=== PATIENT | male | born 1970 | race Caucasian/White ===

== ENCOUNTER 2017-05-23 01:40 | Observation (INO) ==
[2017-05-23] MEDS ORDERED: Naloxone 0.4 MG/ML INJ IVP PRN (03:55)
[2017-05-23] MEDS ORDERED: Nitroglycerin 0.4 MG TAB.SUBL SL PRN (03:57)
[2017-05-23] MEDS ORDERED: *HR* LORazepam 2 MG/ML VIAL IVP PRN ×2 (04:24)
[2017-05-23] MEDS: *HR* Heparin 5,000 UNIT/ML VIAL SQ SCH ×2 (04:24→20:38)
--- NOTE | 2017-05-23 04:27 | Internal Med History&Physical ---
Date of Encounter: 05/23/17 Time of Encounter: 04:15 Assessment and Plan (1) Chest pain Current visit: Yes Status: Acute Acute left-sided chest pain relieved with nitroglycerin. Patient does have risk factors for coronary artery disease including hypertension. We will trend troponins. If troponins are negative, plan for cardiac stress test in the morning. Keep nothing by mouth for now. Check lipid profile and A1c. We will monitor with telemetry. Start aspirin, statin Qualifiers: Chest pain type: precordial pain Qualified Code(s): R07.2 - Precordial pain (2) Essential hypertension Current visit: Yes Status: Chronic Monitor blood pressure. Currently not on any medications. (3) Alcohol withdrawal Current visit: Yes Status: Acute Recent with symptoms of alcohol withdrawal including tremors. No signs of delirium tremens at this time. We will monitor with CIWA protocol and use IV Ativan for symptom relief. High risk for complications due to use of intravenous benzodiazepines. We will also provide supportive care with thiamine , folic acid and IV fluids. Social work consult for alcohol abuse. Qualifiers: Complication of substance-induced condition: uncomplicated Qualified Code(s ): F10.230 - Alcohol dependence with withdrawal, uncomplicated Internal Medicine - H&P: HPI Chief complaint: Chest pain Admitted From: Emergency Dept Plans for Post Hospital Care: Home History of present illness: Mr. Nichols is a 47 year old male patient with a history of essential hypertension, alcohol abuse presented to the ER with complaints of chest pain. He states that the chest pain has been going on intermittently for about one month now. Pain is located on the left side of the chest and radiates down his left arms occasionally. He does have intermittent chest pain on the right side of his chest also. Pain was relieved with nitroglycerin that he received in the ER. No relation to activity. Does not get worse with deep inspiration. Patient also reports that he has been trying to detox himself from alcohol and has been trying to drink alcohol every other day only. He complains of tremors and symptoms of alcohol withdrawal. He reports that he has had history of seizures from alcohol withdrawal. Denies any hallucinations at this time. Patient also complains of cough with production of whitish sputum. He is a chronic smoker. He has not had any prior cardiac workup or stress test. Past Med Surg Social Fam HX - Past Medical History Attestation: Yes The following information was validated with the patient. Source: patient Medical history: hypertension Psychiatric history: no psych history - Social History Smoking Status: Current every day smoker Packs per day: 2 Smokeless Tobacco Status: No Alcohol use: heavy Drug use: none - Family History Mother Living Status: Hx Family Cancer: Yes (Pancreatic) Father Living Status: Hx Family Respiratory Disorders: Yes (COPD) Internal Medicine - H&P: Meds No Known Home Drugs 05/22/17 [History] Allergies No Known Allergies Allergy (Verified 05/22/17 23:10) All Systems PM: A 10-system review of systems was performed and is negative for pertinent findings except as documented above in the HPI. - Constitutional Constitutional: no chills, no fever(s), no night sweats - EENT Eyes: no change in vision, no discharge, no pain, no photophobia Ears: no ear discharge, no ear pain, no tinnitus Nose, mouth and throat: no dysphagia, no nasal discharge, no neck pain, no sore throat - Cardiovascular Cardiovascular ROS IM: chest pain, no diaphoresis, no dyspnea, no lightheadedness, no palpitations, no syncope - Respiratory Respiratory: cough, no dyspnea, no wheezing, no excessive phlegm production - Gastrointestinal Gastrointestinal: no abdominal pain, no diarrhea, no hematemesis, no hematochezia, no melena, no nausea, no vomiting - Musculoskeletal Musculoskeletal ROS IM: no numbness, no tingling - Integumentary Integumentary IM: no rash, no unusual bruising - Neurological Neurological ROS: no confusion, no convulsions, no focal weakness, no numbness, no tingling, no tremor(s) - Hematologic/Lymphatic Hematologic/Lymphatic: no easy bruising - Constitutional Vitals: Temp Pulse Resp BP Pulse Ox 98.4 F 88 16 132/98 97 05/23/17 03:58 05/23/17 03:58 05/23/17 03:58 05/23/17 03:58 05/23/17 03:58 General appearance: Present: cooperative, mild distress, A&O X 3, answers questions appropriately - Eye Eye exam: Present: EOMI, PERRL, conjuntiva pink, sclera anicteric - Neck Neck exam general surgery: Present: supple, trachea midline. Absent: lymphadenopathy - Respiratory Respiratory exam: Present: CTAB. Absent: accessory muscle use, rales, rhonchi, wheezes - Cardiovascular Cardiovascular exam: Present: RRR, +S1, +S2. Absent: diastolic murmur, gallop, rubs, systolic murmur - GI/Abdominal GI/Abdominal exam: Present: normal bowel sounds, soft, no peritoneal signs. Absent: distended, tenderness - Extremities Exam Extremities exam: Present: warm, radial pulses palpable and symetrical. Absent : calf tenderness, cyanotic, pedal edema - Neurological Exam Neurological exam: Present: alert, CN II-XII intact, oriented X3, no focal deficits, strengths equal and symetr throughout. Absent: facial droop, speech deficit Additional comments: Bilateral tremors - Skin Skin exam: Present: dry, intact Internal Med - H&P Results - Labs Labs: Troponin 0.00. AST 81, AST 93, alkaline phosphatase 128. Total bilirubin 0.7 - EKG Data -: EKG Interpreted by Myself EKG shows normal: sinus rhythm - EKG Data Interpretation IM: normal EKG - Impressions Chest x-ray shows no acute infiltrate
[2017-05-23] MEDS: *HR* Morphine 2 MG/ML SYRINGE IVP PRN ×2 (04:34→08:55)
[2017-05-23 05:22] LABS: Hemoglobin A1C 5.1 %
[2017-05-23 05:35] LABS: Chol/HDL Ratio 1.9 (0-4.9)
[2017-05-23] MEDS: Folic Acid 1 MG TABLET PO SCH (08:55)
[2017-05-23] MEDS: Vitamin B Complex/Vit C/Vit E 1 EACH TABLET PO SCH (08:55)
[2017-05-23] MEDS: Aspirin Enteric Coated 81 MG Tablet PO SCH (08:55)
[2017-05-23] MEDS: Thiamine (B-1) 100 MG TABLET PO SCH (08:55)
[2017-05-23] MEDS: *HR* LORazepam 2 MG/ML VIAL IVP PRN ×3 (09:05→20:41)
[2017-05-23 09:18] LABS: Basophils # 0.1 K/mcL (0.0-0.2); Basophils % 0.9 %; Eosinophils # 0.1 K/mcL (0.0-0.6); Eosinophils % 1.1 %; Hematocrit 41.5 % (37.5-50.1); Hemoglobin 13.8 g/dL (12.9-16.9); Immature Granulocytes % 0.4 % (0-4); Lymphocytes # 1.3 K/mcL (0.6-4.6); Lymphocytes % 22.3 %; Mean Corpuscular HGB Conc 33.3 g/dL (31.6-35.5); Mean Corpuscular Hemoglobin 28.6 pg (28.0-33.3); Mean Corpuscular Volume 86.1 fL (83.0-100.0); Mean Platelet Volume 9.2 fL (9.4-12.4); Monocytes # 0.7 K/mcL (0.0-1.3); Monocytes % 12.4 %; Neutrophils # 3.6 K/mcL (1.6-8.9); Platelet Count 211 K/mcL (140-400); Red Blood Count 4.82 M/mcL (4.19-5.50); Red Cell Distribution Width 16.7 % (11.5-14.5); Segmented Neutrophils % 62.9 %
[2017-05-23 09:30] LABS: BUN/Creatinine Ratio 10 (6-26); Blood Urea Nitrogen 7 mg/dL (8-26); Calcium 9.3 mg/dL (8.6-10.8); Carbon Dioxide 30 mEq/L (19-29); Chloride 100 mEq/L (98-109); Glucose 83 mg/dL (70-99); Magnesium 1.9 mg/dL (1.6-2.6); Osmolality,Calculated 279 (280-300); Phosphorous 4.1 mg/dL (2.3-4.7); Potassium 4.3 mEq/L (3.5-4.5); Sodium 136 mEq/L (136-145); eGFR For African Americans > 60 (> 60); eGFR For Non-African Americans > 60 (> 60)
[2017-05-23] MEDS ORDERED: Regadenoson 0.4 MG/5 ML SYRINGE IVP ONE (11:11)
--- NOTE | 2017-05-23 13:30 | Nuclear Medicine Stress Report ---
Regadenoson Nuclear Stress Name: Ho Nichols Date of Study: 05/23/2017 Date: 1970 Ht: 73.0 in Medical Record#: [id number] Age: 47 Wt: 139.0 lb Gender: Male Order #: [id number] Location: [facility] Room: [facility] Supervising Provider: Pamela Cortes CNP Reading Physician: Edilson Acosta MD, [facility] Ordering Physician: Shira Floyd MD Primary Care Physician: None Stress Technologist: Bita Lomeli, [employer]CH[employer]IC, CCT, CPFT Air Support Control Officer: Prem Pereira Indications: Chest Pain Impression: Gated LVEF = 67%. Perfusion imaging was negative for ischemia or infarct. History: Hypertension History of Smoking Stress Test Summary: Stress Test Type: Pharmacologic Regadenoson 0.4mg/5ml given IV Baseline Information: Initial Heart Rate: 75 Blood Pressure: 124/92 Stress Information: Test Terminated Due to (primary): As per protocol Maximum Blood Pressure: 124/90 Maximum Heart Rate: 132 Percent Maximum Heart Rate Achieved: 75 Double Product: [id number] Symptoms: Shortness of breath Nuclear Summary: SPECT myocardial perfusion imaging using Tc99m Sestamibi given intravenously was performed at rest and following cardiac stress testing. The resting images were obtained following initial dose of 10.4 mCi. Following stress an additional dose of 33.2 mCi was given at peak exercise or 30 seconds post regadenoson infusion. Findings: Stress Note * Resting ECG demonstrated normal sinus rhythm. * No baseline arrhythmias were noted. * Patient had no chest pain during stress. * No arrhythmias were noted during stress. * No significant ECG changes with regadenoson. Hemodynamic responses * Normal hemodynamic responses to pharmacologic stress. Study Quality * Study quality is average. Gated EF % * Gated LVEF = 67%. Left Ventricle * The left ventricle is not dilated. * Normal Segmental Perfusion in rest. * Normal segmental perfusion in stress. TID * No evidence of transient ischemic dilatation. Updated by Edilson Acosta MD, [facility] on 05/23/2017 1:26:03 PM electronically signed on 05/23/2017 1:26:23 PM with status of Final
--- NOTE | 2017-05-23 14:15 | Event Note ---
Date of Encounter: 05/23/17 Time of Encounter: 14:12 Patient is a 47y/o male with history of hypertension, alcohol abuse and tobacco abuse presents to the hospital for evaluation of chest pain. Patient has history of significant alcohol abuse, drinking 24 24oz of beer daily x 30 years. He also reports of smoking 2packs of cigarettes daily. Currently he is oriented x 3 however reports of being significantly fatigued. Reports of resolution of chest pain. S/p nuclear stress test which is negative for ischemic perfusion defect. Patient was seen and examined at bedside. Will closely monitor for alcohol withdrawals. CIWA q2h ativan prn Metoprolol 12.5mg PO BID for BP control Hydralazine 10mg IV q6h prn SBP>150 or DBP>100 tele monitoring smoking cessation counseling provided. Nicotine supplementation provided social media specialist evaluation requested
[2017-05-23] MEDS: Nicotine 21 MG PATCH.TD24 TD SCH (19:41)
[2017-05-24] MEDS: *HR* LORazepam 2 MG/ML VIAL IVP PRN ×2 (00:44→09:05)
[2017-05-24 04:00] LABS: Basophils # 0.1 K/mcL (0.0-0.2); Basophils % 1.9 %; Eosinophils # 0.2 K/mcL (0.0-0.6); Eosinophils % 3.4 %; Hematocrit 43.6 % (37.5-50.1); Hemoglobin 14.6 g/dL (12.9-16.9); Immature Granulocytes % 0.4 % (0-4); Lymphocytes # 1.4 K/mcL (0.6-4.6); Lymphocytes % 29.1 %; Mean Corpuscular HGB Conc 33.5 g/dL (31.6-35.5); Mean Corpuscular Hemoglobin 29.3 pg (28.0-33.3); Mean Corpuscular Volume 87.6 fL (83.0-100.0); Mean Platelet Volume 9.9 fL (9.4-12.4); Monocytes # 0.8 K/mcL (0.0-1.3); Monocytes % 16.2 %; Neutrophils # 2.3 K/mcL (1.6-8.9); Platelet Count 207 K/mcL (140-400); Red Blood Count 4.98 M/mcL (4.19-5.50); Red Cell Distribution Width 16.7 % (11.5-14.5)
[2017-05-24] MEDS ORDERED: *HR* LORazepam 2 MG/ML VIAL IVP ONE (04:04)
[2017-05-24 04:21] LABS: BUN/Creatinine Ratio 11 (6-26); Blood Urea Nitrogen 8 mg/dL (8-26); Calcium 9.6 mg/dL (8.6-10.8); Carbon Dioxide 20 mEq/L (19-29); Chloride 101 mEq/L (98-109); Glucose 94 mg/dL (70-99); Magnesium 1.9 mg/dL (1.6-2.6); Osmolality,Calculated 274 (280-300); Phosphorous 3.6 mg/dL (2.3-4.7); Sodium 133 mEq/L (136-145); eGFR For African Americans > 60 (> 60); eGFR For Non-African Americans > 60 (> 60)
[2017-05-24] MEDS: *HR* Heparin 5,000 UNIT/ML VIAL SQ SCH (04:58)
[2017-05-24] MEDS ORDERED: amLODIPine 5 MG TABLET PO SCH (09:00)
[2017-05-24] MEDS: Vitamin B Complex/Vit C/Vit E 1 EACH TABLET PO SCH (09:06)
[2017-05-24] MEDS: Folic Acid 1 MG TABLET PO SCH (09:06)
[2017-05-24] MEDS: Aspirin Enteric Coated 81 MG Tablet PO SCH (09:06)
[2017-05-24] MEDS: Thiamine (B-1) 100 MG TABLET PO SCH (09:06)
[2017-05-24] MEDS: Nicotine 21 MG PATCH.TD24 TD SCH (09:09)
[2017-05-24 11:34] VITALS: BP 146/92
--- NOTE | 2017-05-24 12:15 | Internal Med Progress Note ---
Date of Encounter: 05/24/17 Time of Encounter: 12:13 - Assessment and plan (1) Alcohol withdrawal Current Visit: Yes Status: Acute Qualifiers: Complication of substance-induced condition: with unspecified complication Qualified Code(s): F10.239 - Alcohol dependence with withdrawal, unspecified (2) Alcohol abuse Current Visit: Yes Status: Chronic (3) Tobacco abuse Current Visit: Yes Status: Chronic (4) DVT prophylaxis Current Visit: Yes Status: Acute (5) Chest pain Current Visit: Yes Status: Resolved Qualifiers: Chest pain type: unspecified Qualified Code(s): R07.9 - Chest pain, unspecified (6) Essential hypertension Current Visit: Yes Status: Chronic - Subjective Interval history: Patient was seen and examined during PCR rounds and was resting in bed noted to have diffuse tremors. Pt has been requiring constant dose of ativan and is actively withdrawing. Pt is able to conversate but extremely anxious. He is responding appropriately to ativan. he was in agreement from abstaining from alcohol after discharge. I was informed at this time that patient is missing from the room shortly after his came to visit. Both the patient and are no where to be found. Security has been informed. Pt is reported to have eloped with his IV access. Unable to contact the patient at this time. If the patient returns to the hospital, will continue to treat for alcohol withdrawal and hypertension. - Constitutional Vitals: Temp Pulse Resp BP Pulse Ox 97.7 F 70 18 146/92 98 05/24/17 11:26 05/24/17 11:26 05/24/17 11:26 05/24/17 11:26 05/24/17 11:26 General appearance: Present: cooperative, A&O X 3 (diffuse tremors ), answers questions appropriately - Head Head exam: Present: atraumatic, normocephalic - Eye Eye exam: Present: conjuntiva pink, sclera anicteric - Respiratory Respiratory exam: Present: CTAB. Absent: respiratory distress, wheezes - Cardiovascular Cardiovascular exam: Present: RRR, +S1, +S2 - GI/Abdominal GI/Abdominal exam: Present: normal bowel sounds, soft, no peritoneal signs. Absent: distended, tenderness - Extremities Exam Extremities exam: Present: warm, radial pulses palpable and symetrical. Absent : calf tenderness, cyanotic, pedal edema - Neurological Exam Neurological exam: Present: alert, oriented X3 - Psychiatric Psychiatric exam: Present: anxious Internal Medicine: Result - Labs CBC & Chem 7: 05/24/17 03:36 05/24/17 03:36 Labs: Short CBC 05/24/17 Range/Units 03:36 WBC 4.7 (4.3-11.1) K/mcL Hgb 14.6 (12.9-16.9) g/dL Hct 43.6 (37.5-50.1) % Plt Count 207 (140-400) K/mcL Neutrophils # 2.3 (1.6-8.9) K/mcL BMP 05/24/17 03:36 Sodium 133 L Potassium 4.0 Chloride 101 Carbon Dioxide 20 BUN 8 Creatinine 0.71 L Glucose 94 Calcium 9.6 Consult Discharge Plan - Plan Referrals: NO,PCP [Primary Care Provider] -
[2017-05-24] MEDS ORDERED: Thiamine (B-1) 100 MG, Folic Acid 1 MG, MVI, adult with vitamin K 10 ML in 0.9 % Sodi... IVPB SCH (18:00)
== END 2017-05-24 14:00 | disposition left against medical advice (07) ==
LOC: 2NENU
PROVIDERS: ADMIT Internal Medicine; ATTEND Internal Medicine

== ENCOUNTER 2017-08-10 13:47 | Observation (INO) ==
[2017-08-10 14:15] LABS: Bilirubin,Urine Negative (Negative); Blood,Urine Negative (Negative); Clarity,Urine Clear (Clear); Color,Urine Yellow (Yellow); Glucose,Urine (UA) Normal (Normal); Ketones,Urine Negative (Negative); Leukocyte Esterase,Urine Negative (Negative); Nitrite,Urine Negative (Negative); Protein,Urine Negative (Neg-Trace); Specific Gravity,Urine 1.011 (1.010-1.025); Urobilinogen,Urine Normal (Normal)
[2017-08-10 14:20] LABS: Amphetamine Screen,Urine Negative ng/mL (Cutoff=1000); Barbiturate Screen,Urine Negative ng/mL (Cutoff=200); Benzodiazepines Screen,Urine Negative ng/mL (Cutoff=200); Cannabinoid Screen,Urine Negative ng/mL (Cutoff = 50); Cocaine Screen,Urine Negative ng/mL (Cutoff= 300); Opiate Screen,Urine Negative ng/mL (Cutoff=300); Phencyclidine Screen,Urine Negative ng/mL (Cutoff=25)
--- NOTE | 2017-08-10 14:22 | Emergency Department Note ---
Disposition Clinical Impression: Suicidal ideation, Alcohol abuse, Alcoholism Disposition: Admitted As Inpatient Condition: Fair Referrals: NONE,PCP [Primary Care Provider] - Forms: ED Satisfaction Letter Time of Disposition: 14:33 Psych HPI - General Chief Complaint: ED Psychiatric Symptoms Stated Complaint: rAetha VALLE Time Seen by Provider: 08/10/17 14:19 Source: patient Mode of arrival: ambulatory Limitations: no limitations Nursing Notes Reviewed: Yes Vital Signs Reviewed: Yes - History of Present Illness HPI Narrative: Nontoxic-appearing 47-year-old male presents for evaluation of suicidal ideations. He states that these ideations began yesterday gradually gotten worse. He admits to a history of heavy alcohol abuse. He states that he drinks "a 30 pack a day". His last drink was approximately one hour ago. He states "I feel like him to go into withdrawal". He states that he has "no reason to live anymore, other than the alcohol". When asked if he has a current plan regarding how he would inflicts self-harm, the patient points his finger to his jehovah's witness like he is shooting a pistol. He denies any homicidal ideations. He does complain of visual hallucinations that started today. He states "I am just seeing evil stuff". He denies any auditory hallucinations. He denies any other medical complaints at this time. Pt complaint: suicidal ideation, feels depressed, other Onset (ago): day(s) (Yesterday) Duration: getting worse Improves with: none Worsens with: none Context: recent alcohol abuse Associated Psychiatric Symptoms: depression, suicidal ideation, visual hallucinations Associated symptoms: Reports: denies other symptoms Traumatic symptoms: denies traumatic injury Treatments prior to arrival: none Self harm or harm to others: admits thoughts of self harm, has plan - Related Data Home Medications Medication Instructions Recorded Confirmed Unable To Obtain [Unable to Obtain] 05/25/17 05/25/17 Allergies Allergy/AdvReac Type Severity Reaction Status Date / Time No Known Allergies Allergy Verified 08/10/17 13:52 All systems ED: reviewed and negative except as stated. Constitutional: Denies: fever, chills, weakness, weight change Eyes: Denies: eye pain, eye discharge, vision change ENT ED: Denies: ear pain, throat pain, dental pain, hearing loss, epistaxis, congestion, dysphagia Cardiovascular: Denies: chest pain, palpitations, dyspnea on exertion, edema, syncope Respiratory: Denies: cough, dyspnea, wheezes, hemoptysis, stridor Gastrointestinal: Denies: abdominal pain, nausea, vomiting, diarrhea, constipation, hematemesis, melena, hematochezia Genitourinary: Denies: urgency, dysuria, frequency, hematuria Musculoskeletal: Denies: back pain, neck pain, arthralgia, myalgia Integumentary: Denies: rash, abrasion, lesions Neurological: Denies: headache, weakness, numbness, paresthesias, confusion, abnormal gait, vertigo Psychiatric: Reports: as per HPI, depression, suicidal thoughts. Denies: anxiety, homicidal thoughts, auditory hallucinations, visual hallucinations Endocrine: Denies: fatigue Hematological/Lymphatic: Denies: easy bleeding, easy bruising Allergic/Immunologic: Denies: facial swelling, urticaria Past Medical History - Past Medical History Attestation: Yes The following information was validated with the patient. Source: patient, nursing notes reviewed Medical history: Reports: hypertension Psychiatric history: Reports: no psych history - Social History Smoking Status: Current every day smoker Smokeless Tobacco Status: No Alcohol use: Reports: heavy, recent Drug use: Reports: none Physical Exam - General General appearance: alert, in no apparent distress - Head Head exam: atraumatic, normocephalic, normal inspection - Eye Eye exam: Present: normal appearance, PERRL, EOMI. Absent: nystagmus - ENT ENT exam: mucous membranes moist - Neck Neck exam: Present: normal inspection, full ROM, trachea midline - Chest Chest inspection: Present: normal inspection, symmetric chest wall rise - Respiratory Respiratory exam: Present: wheezes (Faint expiratory wheezes bilaterally). Absent: respiratory distress, stridor, accessory muscle use, prolonged expiratory phase - Cardiovascular Cardiovascular exam: Present: regular rate, normal rhythm, normal heart sounds - Abdominal Exam Abdominal exam: Present: soft, Non-Tender, normal bowel sounds - Extremities Exam Extremities exam: Present: normal inspection, full ROM. Absent: tenderness, pedal edema - Back Exam Back exam: Present: normal inspection, full ROM. Absent: tenderness - Neurological Exam Neurological exam: Present: alert, oriented X3 - Psychiatric Psychiatric exam: Present: depressed, suicidal ideation - Skin Skin exam: Present: warm, dry, intact, normal color Course Vital Signs Temperature 98.0 F 08/10/17 13:49 Pulse Rate 115 08/10/17 13:49 Respiratory Rate 16 08/10/17 13:49 Blood Pressure 149/88 08/10/17 13:49 O2 Sat by Pulse Oximetry 95 08/10/17 13:49 Temperature 98.0 F 08/10/17 13:49 Pulse Rate 115 08/10/17 13:49 Respiratory Rate 16 08/10/17 13:49 Blood Pressure 149/88 08/10/17 13:49 O2 Sat by Pulse Oximetry 95 08/10/17 13:49 Oxygen Delivery Oxygen Delivery Room Air Psych - Lab Data Result diagrams: 08/10/17 14:45 08/10/17 14:45 Lab Results 08/10/17 08/10/17 08/10/17 Range/Units 14:03 14:03 14:45 WBC 5.8 (4.3-11.1) K/mcL RBC 5.20 (4.19-5.50) M/mcL Hgb 13.8 (12.9-16.9) g/dL Hct 40.8 (37.5-50.1) % MCV 78.5 L (83.0-100.0) fL MCH 26.5 L (28.0-33.3) pg MCHC 33.8 (31.6-35.5) g/dL RDW 17.7 H (11.5-14.5) % Plt Count 171 (140-400) K/mcL MPV 9.7 (9.4-12.4) fL Immature Gran % 0.2 (0-4) % Seg Neutrophils % 60.4 % Lymphocytes % 29.4 % Monocytes % 8.1 % Eosinophils % 0.5 % Basophils % 1.4 % Neutrophils # 3.5 (1.6-8.9) K/mcL Lymphocytes # 1.7 (0.6-4.6) K/mcL Monocytes # 0.5 (0.0-1.3) K/mcL Eosinophils # 0.0 (0.0-0.6) K/mcL Basophils # 0.1 (0.0-0.2) K/mcL Sodium (136-145) mEq/L Potassium (3.5-4.5) mEq/L Chloride (98-109) mEq/L Carbon Dioxide (19-29) mEq/L BUN (8-26) mg/dL Creatinine (0.72-1.25) mg/dL Est GFR ( Amer) (> 60) Est GFR (Non-Af Amer) (> 60) BUN/Creatinine Ratio (6-26) Glucose (70-99) mg/dL Calculated Osmolality (280-300) Calcium (8.6-10.8) mg/dL Phosphorus (2.3-4.7) mg/dL Magnesium (1.6-2.6) mg/dL Urine Color Yellow (Yellow) Urine Clarity Clear (Clear) Urine pH 6.0 (5.0-8.0) pH Units Ur Specific [place] 1.011 (1.010-1.025) Urine Protein Negative (Neg-Trace) mg/dL Urine Glucose (UA) Normal (Normal) mg/dL Urine Ketones Negative (Negative) mg/dL Urine Blood Negative (Negative) Urine Nitrite Negative (Negative) Urine Bilirubin Negative (Negative) Urine Urobilinogen Normal (Normal) mg/dL Ur Leukocyte Esterase Negative (Negative) Ur Culture Indicated? NO (NO) Salicylates (15-30) mg/dL Urine Opiates Screen Negative (Yywkdr=961) ng/mL Acetaminophen (10-30) mcg/mL Ur Barbiturates Screen Negative (Lysttz=685) ng/mL Ur Phencyclidine Scrn Negative (Cutoff=25) ng/mL Ur Amphetamines Screen Negative (Dlawui=4376) ng/mL U Benzodiazepines Scrn Negative (Cythvm=861) ng/mL Urine Cocaine Screen Negative (Cutoff= 300) ng/mL U Marijuana (THC) Screen Negative (Cutoff = 50) ng/mL Ethyl Alcohol (0-10) mg/dL 08/10/17 08/10/17 Range/Units 14:45 14:45 WBC (4.3-11.1) K/mcL RBC (4.19-5.50) M/mcL Hgb (12.9-16.9) g/dL Hct (37.5-50.1) % MCV (83.0-100.0) fL MCH (28.0-33.3) pg MCHC (31.6-35.5) g/dL RDW (11.5-14.5) % Plt Count (140-400) K/mcL MPV (9.4-12.4) fL Immature Gran % (0-4) % Seg Neutrophils % % Lymphocytes % % Monocytes % % Eosinophils % % Basophils % % Neutrophils # (1.6-8.9) K/mcL Lymphocytes # (0.6-4.6) K/mcL Monocytes # (0.0-1.3) K/mcL Eosinophils # (0.0-0.6) K/mcL Basophils # (0.0-0.2) K/mcL Sodium 137 (136-145) mEq/L Potassium 4.0 (3.5-4.5) mEq/L Chloride 99 (98-109) mEq/L Carbon Dioxide 28 (19-29) mEq/L BUN 6 L (8-26) mg/dL Creatinine 0.78 (0.72-1.25) mg/dL Est GFR ( Amer) > 60 (> 60) Est GFR (Non-Af Amer) > 60 (> 60) BUN/Creatinine Ratio 8 (6-26) Glucose 92 (70-99) mg/dL Calculated Osmolality 281 (280-300) Calcium 9.3 (8.6-10.8) mg/dL Phosphorus 3.6 (2.3-4.7) mg/dL Magnesium 2.1 (1.6-2.6) mg/dL Urine Color (Yellow) Urine Clarity (Clear) Urine pH (5.0-8.0) pH Units Ur Specific [place] (1.010-1.025) Urine Protein (Neg-Trace) mg/dL Urine Glucose (UA) (Normal) mg/dL Urine Ketones (Negative) mg/dL Urine Blood (Negative) Urine Nitrite (Negative) Urine Bilirubin (Negative) Urine Urobilinogen (Normal) mg/dL Ur Leukocyte Esterase (Negative) Ur Culture Indicated? (NO) Salicylates < 5.0 L (15-30) mg/dL Urine Opiates Screen (Aowsqk=961) ng/mL Acetaminophen < 1.0 L (10-30) mcg/mL Ur Barbiturates Screen ([place]=820) ng/mL Ur Phencyclidine Scrn (Cutoff=25) ng/mL Ur Amphetamines Screen (Cfzmiu=3523) ng/mL U Benzodiazepines Scrn (Glolhj=533) ng/mL Urine Cocaine Screen (Cutoff= 300) ng/mL U Marijuana (THC) Screen (Cutoff = 50) ng/mL Ethyl Alcohol 386 H (0-10) mg/dL Psychiatric Medical Clearance - Medical Clearance Checklist Medical History: Essential hypertension (Chronic) Alcohol withdrawal (Acute) Alcohol abuse (Chronic) Tobacco abuse (Chronic) DVT prophylaxis (Acute) Chest pain (Resolved) Suicidal ideation (Acute) Alcohol withdrawal (Inactive) Alcoholism (Inactive) Chest pain (Inactive) GI bleed (Inactive) Syncope (Inactive) No Social History Section defined Current Vitals: Last Vital Signs Temp 98.0 F 08/10/17 13:49 Pulse 115 08/10/17 13:49 Resp 16 08/10/17 13:49 BP 149/88 08/10/17 13:49 Pulse Ox 95 08/10/17 13:49 Psychiatric Lab Panel: Drug Levels and Toxicity 08/10/17 08/10/17 14:03 14:45 Urine Opiates Screen Negative Acetaminophen < 1.0 L Ur Barbiturates Screen Negative Ur Phencyclidine Scrn Negative Ur Amphetamines Screen Negative U Benzodiazepines Scrn Negative Urine Cocaine Screen Negative U Marijuana (THC) Screen Negative Ethyl Alcohol 386 H Abnormal Labs: Abnormal lab results MCV 78.5 fL (83.0-100.0) L 08/10/17 14:45 MCH 26.5 pg (28.0-33.3) L 08/10/17 14:45 RDW 17.7 % (11.5-14.5) H 08/10/17 14:45 BUN 6 mg/dL (8-26) L 08/10/17 14:45 Salicylates < 5.0 mg/dL (15-30) L 08/10/17 14:45 Acetaminophen < 1.0 mcg/mL (10-30) L 08/10/17 14:45 Ethyl Alcohol 386 mg/dL (0-10) H 08/10/17 14:45 S.B.A.R. - S.B.A.R. Situation: Demographics, MOA Background: Presenting Complaint, Relevant PMH, Meds, & Allergies Assessment: Vital Signs, Course and respsone to treatment, Exam Concerns, Patient/Family Expectation, Pertinant Lab Results, Outstanding Labs Recommendation: Barrier(s) to disposition, Recommendation based on pending studies, treatments, or consults S.B.A.R. Report Given to: Dr. Stanton S.B.A.RMatt Repor Time: 14:33 Attestation Statement - Attestation Attestation: For this encounter, I have reviewed the ART APPRAISER or PA documentation, treatment plan, and medical decision making; and I have had face to face time with this patient. Patient concerned about impending alcohol withdrawal. 30 year history of 30 pack of beer drinking daily. He admits to feeling suicidal but not with an active plan. Appears jittery on exam. Will require admission 15:43: Will admit for ETOH, SI
[2017-08-10] MEDS ORDERED: diazePAM 10 MG/2 ML SYRINGE IVP ONE (14:30)
[2017-08-10 15:15] LABS: Basophils # 0.1 K/mcL (0.0-0.2); Basophils % 1.4 %; Eosinophils % 0.5 %; Hematocrit 40.8 % (37.5-50.1); Hemoglobin 13.8 g/dL (12.9-16.9); Immature Granulocytes % 0.2 % (0-4); Lymphocytes # 1.7 K/mcL (0.6-4.6); Lymphocytes % 29.4 %; Mean Corpuscular HGB Conc 33.8 g/dL (31.6-35.5); Mean Corpuscular Hemoglobin 26.5 pg (28.0-33.3); Mean Corpuscular Volume 78.5 fL (83.0-100.0); Mean Platelet Volume 9.7 fL (9.4-12.4); Monocytes # 0.5 K/mcL (0.0-1.3); Monocytes % 8.1 %; Neutrophils # 3.5 K/mcL (1.6-8.9); Platelet Count 171 K/mcL (140-400); Red Cell Distribution Width 17.7 % (11.5-14.5); Segmented Neutrophils % 60.4 %
[2017-08-10 15:30] LABS: Magnesium 2.1 mg/dL (1.6-2.6); Phosphorous 3.6 mg/dL (2.3-4.7)
[2017-08-10 15:31] LABS: BUN/Creatinine Ratio 8 (6-26); Blood Urea Nitrogen 6 mg/dL (8-26); Calcium 9.3 mg/dL (8.6-10.8); Carbon Dioxide 28 mEq/L (19-29); Chloride 99 mEq/L (98-109); Ethanol 386 mg/dL (0-10); Glucose 92 mg/dL (70-99); Osmolality,Calculated 281 (280-300); Sodium 137 mEq/L (136-145); eGFR For African Americans > 60 (> 60); eGFR For Non-African Americans > 60 (> 60)
[2017-08-10 15:33] LABS: Acetaminophen < 1.0 mcg/mL (10-30)
[2017-08-10 15:34] LABS: Salicylate < 5.0 mg/dL (15-30)
[2017-08-10] MEDS: Thiamine (B-1) 100 MG, Folic Acid 1 MG, MVI, adult with vitamin K 10 ML in 0.9 % Sodi... IVPB SCH ×2 (15:40→19:09)
[2017-08-10] MEDS ORDERED: Naloxone 0.4 MG/ML INJ IVP PRN (16:46)
[2017-08-10] MEDS ORDERED: *HR* LORazepam 2 MG/ML VIAL IVP PRN ×3 (16:48→17:16)
--- NOTE | 2017-08-10 17:08 | Internal Med History&Physical ---
<Corinne Zarate - Last Filed: 08/10/17 17:06> Date of Encounter: 08/10/17 Time of Encounter: 17:06 Assessment and Plan (1) Alcohol abuse Current visit: Yes Status: Chronic Ho Khanna is a 47 y/o male with PMH hypertension and alcohol abuse presented to [facility] on 08/10/2017 and alcohol withdrawal and with suicidal ideation. He was placed in observation status for further workup and treatment. 1. Alcohol intoxication: Daily drinker; reports drinking 30 beers daily. Last drink at 1000 on day of presentation. BAL 386. Urine drug screen negative. History of seizures, DTs in the past; requiring ICU admission with Precedex and intubation. Would have low threshold for transferring to ICU and Precedex. Continue close monitoring with wm SMITH. 2. Suicidal ideation: Patient verbalized wanting to kill himself while in the ER. Now says he was hallucinating and denies thoughts of harming or killing self. Will need to be cleared by psychiatry.1:1 sitter for now. 3. Hypertension: per hx. BP controlled. Cont home BP medications. Monitor BP and titrate PRN 4. DVT prophylaxis: Heparin (2) Essential hypertension Current visit: No Status: Chronic (3) Suicidal ideation Current visit: Yes Status: Acute (4) DVT prophylaxis Current visit: No Status: Acute Internal Medicine - H&P: HPI Chief complaint: I am and withdrawal Admitted From: Home Plans for Post Hospital Care: Home History of present illness: Mr. Khanna is a 47 year old male with past medical history hypertension and alcohol abuse who presented to [facility] on 08/10/2017 with complaints of being in alcohol withdrawal. He was placed in observation status for further workup and treatment. Information obtained from chart review and patient report. Patient says he drinks approximately 30 beers a day, says he is tired of living this way and wants to get help. Last drink at 10:00 on morning of presentation. at bedside and reports patient drinks from the moment he gets up to when he goes to bed. Patient does feel like he is in withdrawal at this time. No chest pain, no shortness of breath. Past Med Surg Social Fam HX - Past Medical History Medical history: hypertension Psychiatric history: no psych history - Past Surgical History Surgical History: non-contributory - Social History Smoking Status: Current every day smoker Smokeless Tobacco Status: No Alcohol use: heavy, recent Drug use: none - Family History Mother Living Status: Hx Family Cancer: Yes (Pancreatic) Father Living Status: Hx Family Respiratory Disorders: Yes (COPD) Internal Medicine - H&P: Meds Amlodipine Besylate 10 mg PO DAILY 08/10/17 [History] Lisinopril [Zestril] 20 mg PO DAILY 08/10/17 [History] 3 Allergy/AdvReac Type Severity Reaction Status Date / Time No Known Allergies Allergy Verified 08/10/17 13:52 All Systems PM: A 10-system review of systems was performed and is negative for pertinent findings except as documented above in the HPI. - Constitutional Constitutional: malaise, no chills, no fever(s), no night sweats - EENT Eyes: no change in vision, no discharge, no pain, no photophobia Ears: no ear discharge, no ear pain, no tinnitus Nose, mouth and throat: no dysphagia, no nasal discharge, no neck pain, no sore throat - Cardiovascular Cardiovascular ROS IM: no chest pain, no diaphoresis, no dyspnea, no lightheadedness, no palpitations, no syncope - Respiratory Respiratory: no cough, no dyspnea, no wheezing, no excessive phlegm production - Gastrointestinal Gastrointestinal: no abdominal pain, no diarrhea, no hematemesis, no hematochezia, no melena, no nausea, no vomiting - Musculoskeletal Musculoskeletal ROS IM: no numbness, no tingling - Integumentary Integumentary IM: no rash, no unusual bruising - Neurological Neurological ROS: no confusion, no convulsions, no focal weakness, no numbness, no tingling, no tremor(s) - Psychiatric Psychiatric: anxiety - Hematologic/Lymphatic Hematologic/Lymphatic: no easy bruising - Constitutional Vitals: Temp Pulse Resp BP Pulse Ox 98.5 F 85 16 131/86 92 08/10/17 16:59 08/10/17 16:59 08/10/17 16:59 08/10/17 16:59 08/10/17 16:59 General appearance: Present: mild distress, A&O X 3 - Head Head exam: Present: atraumatic, normocephalic - Eye Eye exam: Present: PERRL, conjuntiva pink, sclera anicteric Pupils: Present: PERRL - Neck Neck exam general surgery: Present: supple, trachea midline. Absent: lymphadenopathy - Respiratory Respiratory exam: Present: CTAB. Absent: accessory muscle use, rales, rhonchi, wheezes - Cardiovascular Cardiovascular exam: Present: RRR, +S1, +S2. Absent: diastolic murmur, gallop, rubs, systolic murmur - GI/Abdominal GI/Abdominal exam: Present: normal bowel sounds, soft, no peritoneal signs. Absent: distended, tenderness - Extremities Exam Extremities exam: Present: warm, radial pulses palpable and symmetrical. Absent : calf tenderness, cyanotic, pedal edema - Neurological Exam Neurological exam: Present: CN II-XII intact, oriented X3, no focal deficits. Absent: pronater drift, facial droop, speech deficit - Skin Skin exam: Present: dry, intact Internal Med - H&P Results - Labs CBC & Chem 7: 08/10/17 14:45 08/10/17 14:45 <Arnaldo Awad - Last Filed: 08/10/17 20:07> Date of Encounter: 08/10/17 Internal Medicine - H&P: HPI History of present illness: Mr. Khanna is a 47 year old male All Systems PM: A 10-system review of systems was performed and is negative for pertinent findings except as documented above in the HPI. - Constitutional Vitals: Temp Pulse Resp BP Pulse Ox 98.3 F 101 21 130/79 90 08/10/17 18:46 08/10/17 18:46 08/10/17 18:46 08/10/17 18:46 08/10/17 18:46 Internal Med - H&P Results - Labs CBC & Chem 7: 08/10/17 14:45 08/10/17 14:45 - Attending Attestation I independently obtained history and examined this patient and my medical decision-making was reviewed with the nurse practitioner. I agree with the documented findings, disposition and treatment plan as described. My findings are summarized below: He presented to the hospital with the intention to quit alcohol use. He admits to me having suicidal ideation. On exam he is in no acute distress, awake alert oriented 3. Heart is regular. Lungs are clear. Plan: [facility] protocol. Suicidal precautions, direct continuous safety observation and a psychiatry consult. He is at high risk for morbidity, mortality and complications due to need for IV benzodiazepines. He has a history of uncontrolled withdrawal symptoms which required intubation and IV Precedex. If if current symptoms are not controlled with benzodiazepines he may need to be treated with Precedex.
[2017-08-10] MEDS ORDERED: *HR* LORazepam 2 MG/ML VIAL IVP ONE (17:11)
[2017-08-10] MEDS: Nicotine 21 MG PATCH.TD24 TD SCH (19:12)
[2017-08-10] MEDS: 0.9 % Sodium Chloride 1,000 ML IVC SCH (22:47)
[2017-08-10] MEDS: *HR* LORazepam 2 MG/ML VIAL IVP PRN (23:01)
[2017-08-11 03:32] LABS: Bilirubin,Urine Negative (Negative); Blood,Urine Negative (Negative); Clarity,Urine Clear (Clear); Color,Urine Yellow (Yellow); Glucose,Urine (UA) Normal (Normal); Ketones,Urine Negative (Negative); Leukocyte Esterase,Urine Negative (Negative); Nitrite,Urine Negative (Negative); Protein,Urine Negative (Neg-Trace); Specific Gravity,Urine 1.018 (1.010-1.025); Urobilinogen,Urine Normal (Normal)
[2017-08-11] MEDS: *HR* LORazepam 2 MG/ML VIAL IVP PRN ×7 (03:33→20:06)
[2017-08-11 06:10] LABS: Hematocrit 37.2 % (37.5-50.1); Mean Corpuscular HGB Conc 32.3 g/dL (31.6-35.5); Mean Corpuscular Volume 80.5 fL (83.0-100.0); Mean Platelet Volume 9.8 fL (9.4-12.4); Platelet Count 143 K/mcL (140-400); Red Blood Count 4.62 M/mcL (4.19-5.50); Red Cell Distribution Width 17.4 % (11.5-14.5)
[2017-08-11 06:21] LABS: Alanine Aminotransferase 23 Units/L (0-55); Albumin 3.2 g/dL (3.5-5.0); Albumin/Globulin Ratio 0.8 (1.1-2.2); Alkaline Phosphatase 90 Units/L (38-126); Aspartate Amino Transferase 29 Units/L (5-34); BUN/Creatinine Ratio 13 (6-26); Bilirubin,Total 0.6 mg/dL (0.2-1.2); Blood Urea Nitrogen 9 mg/dL (8-26); Calcium 9.2 mg/dL (8.6-10.8); Carbon Dioxide 28 mEq/L (19-29); Chloride 106 mEq/L (98-109); Globulin 3.8 g/dL (2.4-3.5); Glucose 75 mg/dL (70-99); Osmolality,Calculated 287 (280-300); Potassium 4.5 mEq/L (3.5-4.5); Sodium 140 mEq/L (136-145); eGFR For African Americans > 60 (> 60); eGFR For Non-African Americans > 60 (> 60)
[2017-08-11 06:23] LABS: Ethanol < 10 mg/dL (0-10)
[2017-08-11] MEDS: Thiamine (B-1) 100 MG, Folic Acid 1 MG, MVI, adult with vitamin K 10 ML in 0.9 % Sodi... IVPB SCH ×3 (09:01→17:07)
[2017-08-11] MEDS: Lisinopril 20 MG TABLET PO SCH (09:02)
[2017-08-11] MEDS: amLODIPine 5 MG TABLET PO SCH (09:02)
[2017-08-11] MEDS: Nicotine 21 MG PATCH.TD24 TD SCH (09:06)
--- NOTE | 2017-08-11 12:16 | Consult Note ---
Date of Encounter: 08/11/17 Time of Encounter: 12:10 Assessment & Recommendation (1) Suicidal ideation Current visit: Yes Status: Acute Assessment & Recommendation: Client denies he is actively suicidal. Admits to a passive wish but denies any intent or plan to harm himself. Recognizes AOD use as his biggest problem. Wants and needs inpatient residential AOD treatment. Can start a medication for depression but it will have little effect until the alcohol withdrawal has passed. Recommend Lexapro if anything is started as client remembers this medication helping him in the past. Continue detox protocol and refer for inpatient rehab. Doubt a sitter is necessary unless needed to monitor for seizure activity. History of Present Illness Requesting Physician: Corinne Zarate CNP Reason for consult: suicidal ideation History of present illness: Mr. Khanna is a 47 year old male who presented to the ER secondary to alcohol withdrawal. Endorsed SI to clinical providers. On eval today client is cooperative but still in active withdrawal. Tremulous. Reports he was drinking thirty beers a day. Reports multiple prior rehab stays and detox attempts. History of seizures and DTs. Wants to stop drinking. Has had periods of sobriety in the past but always returns to alcohol during periods of stress. Admits to depressed mood with a passive wish today. Reports SI off and on but denies any intent or plan. Adamant he would never take his own life. Occasionally thinks he would be better off but denies he is at risk for acting on any suicidal thoughts. Has been treated for depression in the past with some benefit. Hard to say how much benefit he derived from treatment due to the ongoing alcohol use but client seemed to remember Lexapro being the most effective. Readily admits that substance abuse is his biggest issue and that AOD use is driving his depressed mood. CC: Corinne Zarate CNP Past Med Surg Social Fam HX - Past Medical History Medical history: hypertension - Past Psychiatric History Psychiatric history: Reports: depression, previous psychiatric hospitalization Family psychiatric history: Unknown Family History of Suicide: Unknown - Past Surgical History Surgical History: non-contributory - Social History Smoking Status: Current every day smoker Smokeless Tobacco Status: No Alcohol use: heavy, recent Drug use: none - Family History Mother Adopted: [place]: David Payne Family Member Ethnicity: Non- Living Status: Age at : 47 Cause of : pancratic cancer Hx Family Cardiac Disorders: No Hx Family Respiratory Disorders: No Hx Family Cancer: Yes (Pancreatic) Hx Family GI Disorders: No Hx Family Genitourinary Disorders: No Hx Family Endocrine Disorder: Yes Hx Family Musculoskeletal Disorders: No Hx Family Neuromuscular Disorders: No Hx Family Neurologic Disorders: No Hx Family HEENT Disorders: No Hx Family Autoimmune Disorders: No Hx Family Reproductive Disorders: No Hx Family Psychosocial Disorders: No Hx Family Medical Disorders: No Father Adopted: [place]: Dylan Khanna Family Member Ethnicity: Non- Living Status: Age at : 70 Cause of : Respiratory Hx Family Cardiac Disorders: Yes Hx Family Respiratory Disorders: Yes (COPD) Hx Family Cancer: No Hx Family GI Disorders: No Hx Family Genitourinary Disorders: Yes Hx Family Endocrine Disorder: No Hx Family Musculoskeletal Disorders: No Hx Family Neuromuscular Disorders: No Hx Family Neurologic Disorders: No Hx Family HEENT Disorders: No Hx Family Autoimmune Disorders: No Hx Family Reproductive Disorders: No Hx Family Psychosocial Disorders: Yes Hx Family Medical Disorders: No Medications & Allergies Amlodipine Besylate 10 mg PO DAILY 08/10/17 [History] Lisinopril [Zestril] 20 mg PO DAILY 08/10/17 [History] 3 Allergy/AdvReac Type Severity Reaction Status Date / Time No Known Allergies Allergy Verified 08/10/17 13:52 Review of Systems Constitutional: Reports: weakness, other Eyes: Denies: eye pain, vision change Ears, Nose, Throat: Denies: ear pain, throat pain, dental pain, hearing loss, congestion Cardiovascular: Denies: chest pain, palpitations, dyspnea on exertion Respiratory: Denies: cough, dyspnea, wheezes Gastrointestinal: Denies: abdominal pain, nausea, vomiting, diarrhea, constipation Genitourinary male: Denies: urgency, dysuria, frequency, genital lesions Genitourinary female: Denies: urgency, dysuria, frequency, abnormal menses, dyspareunia Musculoskeletal: Reports: myalgia Integumentary: Denies: rash, lesions, pruritus Neurological: Reports: weakness, confusion Psychiatric: Reports: depression, confusion, other Endocrine: Denies: fatigue, heat or cold intolerance Hematologic/Lymphatic: Denies: easy bruising, lymphadenopathy Allergic/Immunologic: Denies: urticaria, itchy eyes Mental Status Exam Patient orientation: Yes Person, Yes Time, Yes Place Level of alertness: Alert Patient appearance: Unkempt Behavior: cooperative Psychomotor activity: Increased Eye contact: Maintains Eye Contact Mood description: Depressed Affect description: congruent with mood Speech pattern: Normal rate, Normal rhythm, Normal tone Speech volume: Normal Thought process: Linear Thought content: No Suicidal ideation, No Homicidal ideation, No Overt delusions Perceptual disturbances: No Auditory hallucinations, No Visual hallucinations Attention span: Capable of Focused Attention Memory description: Grossly Intact Patient reliability: Reliable Historian Intelligence estimate: Average Judgment: Limited Insight: Partial Results - Vital Signs Vital signs: Temp Pulse Resp BP Pulse Ox 98.3 F 100 17 171/110 91 08/11/17 11:25 08/11/17 11:25 08/11/17 11:25 08/11/17 11:25 08/11/17 11:25 - Drug Levels and Toxicology Drug Levels and Toxicology: Drug Levels and Toxicity 08/11/17 05:01 Ethyl Alcohol < 10 - Labs Labs: Laboratory Last Values WBC 5.2 K/mcL (4.3-11.1) 08/11/17 05:01 RBC 4.62 M/mcL (4.19-5.50) 08/11/17 05:01 Hgb 12.0 g/dL (12.9-16.9) L D 08/11/17 05:01 Hct 37.2 % (37.5-50.1) L 08/11/17 05:01 MCV 80.5 fL (83.0-100.0) L 08/11/17 05:01 MCH 26.0 pg (28.0-33.3) L 08/11/17 05:01 MCHC 32.3 g/dL (31.6-35.5) 08/11/17 05:01 RDW 17.4 % (11.5-14.5) H 08/11/17 05:01 Plt Count 143 K/mcL (140-400) 08/11/17 05:01 MPV 9.8 fL (9.4-12.4) 08/11/17 05:01 Immature Gran % 0.2 % (0-4) 08/10/17 14:45 Seg Neutrophils % 60.4 % 08/10/17 14:45 Lymphocytes % 29.4 % 08/10/17 14:45 Monocytes % 8.1 % 08/10/17 14:45 Eosinophils % 0.5 % 08/10/17 14:45 Basophils % 1.4 % 08/10/17 14:45 Neutrophils # 3.5 K/mcL (1.6-8.9) 08/10/17 14:45 Lymphocytes # 1.7 K/mcL (0.6-4.6) 08/10/17 14:45 Monocytes # 0.5 K/mcL (0.0-1.3) 08/10/17 14:45 Eosinophils # 0.0 K/mcL (0.0-0.6) 08/10/17 14:45 Basophils # 0.1 K/mcL (0.0-0.2) 08/10/17 14:45 Sodium 140 mEq/L (136-145) 08/11/17 05:01 Potassium 4.5 mEq/L (3.5-4.5) 08/11/17 05:01 Chloride 106 mEq/L (98-109) 08/11/17 05:01 Carbon Dioxide 28 mEq/L (19-29) 08/11/17 05:01 BUN 9 mg/dL (8-26) 08/11/17 05:01 Creatinine 0.72 mg/dL (0.72-1.25) 08/11/17 05:01 Est GFR ( Amer) > 60 (> 60) 08/11/17 05:01 Est GFR (Non-Af Amer) > 60 (> 60) 08/11/17 05:01 BUN/Creatinine Ratio 13 (6-26) 08/11/17 05:01 Glucose 75 mg/dL (70-99) 08/11/17 05:01 POC Glucose 79 (58-89) 08/11/17 03:51 Calculated Osmolality 287 (280-300) 08/11/17 05:01 Calcium 9.2 mg/dL (8.6-10.8) 08/11/17 05:01 Phosphorus 3.6 mg/dL (2.3-4.7) 08/10/17 14:45 Magnesium 2.1 mg/dL (1.6-2.6) 08/10/17 14:45 Total Bilirubin 0.6 mg/dL (0.2-1.2) 08/11/17 05:01 AST 29 Units/L (5-34) 08/11/17 05:01 ALT 23 Units/L (0-55) 08/11/17 05:01 Alkaline Phosphatase 90 Units/L (38-126) 08/11/17 05:01 Serum Total Protein 7.0 g/dL (6.0-8.3) 08/11/17 05:01 Albumin 3.2 g/dL (3.5-5.0) L 08/11/17 05:01 Globulin 3.8 g/dL (2.4-3.5) H 08/11/17 05:01 Albumin/Globulin Ratio 0.8 (1.1-2.2) L 08/11/17 05:01 Amylase 96 Units/L (25-125) 08/10/17 14:45 Urine Color Yellow (Yellow) 08/11/17 03:27 Urine Clarity Clear (Clear) 08/11/17 03:27 Urine pH 6.0 pH Units (5.0-8.0) 08/11/17 03:27 Ur Specific [place] 1.018 (1.010-1.025) 08/11/17 03:27 Urine Protein Negative mg/dL (Neg-Trace) 08/11/17 03:27 Urine Glucose (UA) Normal mg/dL (Normal) 08/11/17 03:27 Urine Ketones Negative mg/dL (Negative) 08/11/17 03:27 Urine Blood Negative (Negative) 08/11/17 03:27 Urine Nitrite Negative (Negative) 08/11/17 03:27 Urine Bilirubin Negative (Negative) 08/11/17 03:27 Urine Urobilinogen Normal mg/dL (Normal) 08/11/17 03:27 Ur Leukocyte Esterase Negative (Negative) 08/11/17 03:27 Ur Culture Indicated? NO (NO) 08/10/17 14:03 Salicylates < 5.0 mg/dL (15-30) L 08/10/17 14:45 Urine Opiates Screen Negative ng/mL (Tinbnc=618) 08/10/17 14:03 Acetaminophen < 1.0 mcg/mL (10-30) L 08/10/17 14:45 Ur Barbiturates Screen Negative ng/mL (Eprcsu=881) 08/10/17 14:03 Ur Phencyclidine Scrn Negative ng/mL (Cutoff=25) 08/10/17 14:03 Ur Amphetamines Screen Negative ng/mL (Wqecjw=4575) 08/10/17 14:03 U Benzodiazepines Scrn Negative ng/mL (Efimww=136) 08/10/17 14:03 Urine Cocaine Screen Negative ng/mL (Cutoff= 300) 08/10/17 14:03 U Marijuana (THC) Screen Negative ng/mL (Cutoff = 50) 08/10/17 14:03 Ethyl Alcohol < 10 mg/dL (0-10) 08/11/17 05:01 Consult Discharge Plan - Plan Referrals: NONE,PCP [Primary Care Provider] -
[2017-08-11] MEDS: 0.9 % Sodium Chloride 1,000 ML IVC SCH (12:58)
--- NOTE | 2017-08-11 15:31 | Internal Med Progress Note ---
Date of Encounter: 08/11/17 Time of Encounter: 15:30 - Assessment and plan (1) Alcohol abuse Current Visit: Yes Status: Chronic Assessment and plan: Ho Khanna is a 47 y/o male with PMH hypertension and alcohol abuse presented to [facility] on 08/10/2017 and alcohol withdrawal and with suicidal ideation. He was placed in observation status for further workup and treatment. 1. Alcohol intoxication: Daily drinker; reports drinking 30 beers daily. Last drink at 1000 on day of presentation. BAL 386. Urine drug screen negative. History of seizures, DTs in the past with Etoh withdrawal requiring ICU admission with Precedex and intubation. Would have low threshold for transferring to ICU and Precedex if he continues to score high on CIWA scale. Cont ativan per CIWA scale. Banana bag. 2. Suicidal ideation: Patient verbalized wanting to kill himself while in the ER. Patient later reported SI secondary to hallucinating and denies thoughts of harming or killing self. Evaluated by psychiatry who did not feel patient at present was danger to self or others. No need for 1 on 1 sitter. And start Lexapro for depression per psychiatry recommendations once alcohol withdrawal complete. 3. Hypertension: per hx. BP initially controlled but now with SBP's in 170s. Difficult to ascertain if true uncontrolled hypertension or BP elevation due to alcohol withdrawal. Cont home BP medications. And when necessary IV hydralazine. Continue to monitor BP and titrate PRN 4. DVT prophylaxis: Heparin (2) Essential hypertension Current Visit: No Status: Chronic (3) Suicidal ideation Current Visit: Yes Status: Acute (4) DVT prophylaxis Current Visit: No Status: Acute - Subjective Interval history: Seen and examined at bedside, patient says he is going to withdrawal. Feels shaky and jittery. at bedside and says he appears anxious and nervous. States relief with Ativan. He had an episode of chest pain this afternoon in the setting of high blood pressure. Chest pain now resolved, no shortness of breath. - Constitutional Vitals: Temp Pulse Resp BP Pulse Ox 98.3 F 100 17 171/110 91 08/11/17 11:25 08/11/17 11:25 08/11/17 11:25 08/11/17 11:25 08/11/17 11:25 General appearance: Present: mild distress, A&O X 3 - Head Head exam: Present: atraumatic, normocephalic - Eye Eye exam: Present: PERRL, conjuntiva pink, sclera anicteric Pupils: Present: PERRL - Neck Neck exam general surgery: Present: supple, trachea midline. Absent: lymphadenopathy - Respiratory Respiratory exam: Present: CTAB. Absent: accessory muscle use, rales, rhonchi, wheezes - Cardiovascular Cardiovascular exam: Present: RRR, +S1, +S2. Absent: diastolic murmur, gallop, rubs, systolic murmur - GI/Abdominal GI/Abdominal exam: Present: normal bowel sounds, soft, no peritoneal signs. Absent: distended, tenderness - Extremities Exam Extremities exam: Present: warm, radial pulses palpable and symmetrical. Absent : calf tenderness, cyanotic, pedal edema - Neurological Exam Neurological exam: Present: CN II-XII intact, oriented X3, no focal deficits. Absent: pronater drift, facial droop, speech deficit - Psychiatric Psychiatric exam: Present: anxious - Skin Skin exam: Present: dry, intact Internal Medicine: Result - Labs CBC & Chem 7: 08/11/17 05:01 08/11/17 05:01 Labs: Short CBC 08/11/17 Range/Units 05:01 WBC 5.2 (4.3-11.1) K/mcL Hgb 12.0 L D (12.9-16.9) g/dL Hct 37.2 L (37.5-50.1) % Plt Count 143 (140-400) K/mcL BMP 08/11/17 05:01 Sodium 140 Potassium 4.5 Chloride 106 Carbon Dioxide 28 BUN 9 Creatinine 0.72 Glucose 75 Calcium 9.2 Cardiac Enzymes 08/11/17 Range/Units 13:09 Troponin I 0.00 (0-0.03) ng/mL Liver Function 08/11/17 Range/Units 05:01 Total Bilirubin 0.6 (0.2-1.2) mg/dL AST 29 (5-34) Units/L ALT 23 (0-55) Units/L Alkaline Phosphatase 90 (38-126) Units/L Albumin 3.2 L (3.5-5.0) g/dL Urine 08/11/17 Range/Units 03:27 Urine Color Yellow (Yellow) Urine Clarity Clear (Clear) Urine pH 6.0 (5.0-8.0) pH Units Ur Specific [place] 1.018 (1.010-1.025) Urine Protein Negative (Neg-Trace) mg/dL Urine Glucose (UA) Normal (Normal) mg/dL Consult Discharge Plan - Plan Referrals: NONE,PCP [Primary Care Provider] -
[2017-08-12] MEDS: *HR* LORazepam 2 MG/ML VIAL IVP PRN ×2 (00:01→05:09)
[2017-08-12] MEDS: 0.9 % Sodium Chloride 1,000 ML IVC SCH ×2 (00:01→08:47)
[2017-08-12 05:34] LABS: Hematocrit 36.2 % (37.5-50.1); Hemoglobin 11.9 g/dL (12.9-16.9); Mean Corpuscular HGB Conc 32.9 g/dL (31.6-35.5); Mean Corpuscular Hemoglobin 26.1 pg (28.0-33.3); Mean Corpuscular Volume 79.4 fL (83.0-100.0); Mean Platelet Volume 10.6 fL (9.4-12.4); Platelet Count 134 K/mcL (140-400); Red Blood Count 4.56 M/mcL (4.19-5.50); Red Cell Distribution Width 17.4 % (11.5-14.5)
[2017-08-12 05:52] LABS: Alanine Aminotransferase 19 Units/L (0-55); Albumin/Globulin Ratio 0.8 (1.1-2.2); Alkaline Phosphatase 86 Units/L (38-126); Aspartate Amino Transferase 26 Units/L (5-34); BUN/Creatinine Ratio 13 (6-26); Bilirubin,Total 0.7 mg/dL (0.2-1.2); Blood Urea Nitrogen 8 mg/dL (8-26); Calcium 9.1 mg/dL (8.6-10.8); Carbon Dioxide 23 mEq/L (19-29); Chloride 103 mEq/L (98-109); Globulin 3.9 g/dL (2.4-3.5); Glucose 79 mg/dL (70-99); Osmolality,Calculated 277 (280-300); Potassium 3.6 mEq/L (3.5-4.5); Sodium 135 mEq/L (136-145); Total Protein 6.9 g/dL (6.0-8.3); eGFR For African Americans > 60 (> 60); eGFR For Non-African Americans > 60 (> 60)
[2017-08-12] MEDS: Nicotine 21 MG PATCH.TD24 TD SCH (08:45)
[2017-08-12] MEDS: Lisinopril 20 MG TABLET PO SCH (08:45)
[2017-08-12] MEDS: amLODIPine 5 MG TABLET PO SCH (08:45)
[2017-08-12 10:35] VITALS: BP 147/99
--- NOTE | 2017-08-12 11:24 | Discharge Summary ---
Date of Encounter: 08/12/17 Time of Encounter: 11:19 - Discharge Diagnosis (1) Alcohol abuse Priority: Primary Status: Chronic Comments: Ho Khanna is a 47 y/o male with PMH hypertension and alcohol abuse presented to [facility] on 08/10/2017 and alcohol withdrawal and with suicidal ideation. He was placed in observation status for further workup and treatment. 1. Alcohol intoxication: Daily drinker; reports drinking 30 beers daily. Last drink at 1000 on day of presentation. BAL 386. Urine drug screen negative. History of seizures, DTs in the past with Etoh withdrawal requiring ICU admission with Precedex and intubation. Would have low threshold for transferring to ICU and Precedex if he continues to score high on CIWA scale. Cont ativan per CIWA scale. Banana bag. Patient left AMA 2. Suicidal ideation: Patient verbalized wanting to kill himself while in the ER. Patient later reported SI secondary to hallucinating and denies thoughts of harming or killing self. Evaluated by psychiatry who did not feel patient at present was danger to self or others. No need for 1 on 1 sitter. Can start Lexapro for depression per psychiatry recommendations once alcohol withdrawal complete. Patient left AMA 3. Hypertension: per hx. BP initially controlled but now with SBP's in 170s. Difficult to ascertain if true uncontrolled hypertension or BP elevation due to alcohol withdrawal. Cont home BP medications. And when necessary IV hydralazine. Continue to monitor BP and titrate PRN. Patient left AMA (2) Essential hypertension Priority: Primary Status: Chronic (3) Suicidal ideation Priority: Primary Status: Acute - Discharge Medications Home Medications: Amlodipine Besylate 10 mg PO DAILY 08/10/17 [History] Lisinopril [Zestril] 20 mg PO DAILY 08/10/17 [History] Allergies/Adverse Reactions: 3 Allergy/AdvReac Type Severity Reaction Status Date / Time No Known Allergies Allergy Verified 08/10/17 13:52 Procedures/tests Complete & Pending: Procedures Performed prior 72 hours Category Date Time Status ECG 12 lead ECG [ECG] Stat Y 08/11/17 12:32 Ordered Date of admission: 08/10/17 16:15 Primary care physician: PCP NONE Consults: 08/10/17 16:48 Consult to [employer] [CONS] Routine Reason for SW Consult: EtOH withdrawal 10/10/17 17:19 Consult to Psychiatry [CONS] Routine Consulting Provider: Jonatan Espinoza Reason for Consult: Suicidal ideation Call Completed: Yes Discharging clinician: Corinne Zarate Anticipated date of discharge: 08/12/17 - Patient Status Disposition: Left Against Medical Advice Functional capacity at discharge: independent ambulation Overall status at discharge: patient is progressing back to baseline - Discharge Instructions Follow Up With: NONE,PCP [Primary Care Provider] - - Diet and Activity Activity: increase activity as tolerated Diet: advance to your usual diet Interval History: Seen and examined at bedside, patient says he wants to go home. Advised patient that he is still in alcohol withdrawal and still requiring IV ativan and I do not advise him to leave the hospital. Patient says he is going to inpatient rehab and is fine. Says he is tired and weak but not in withdrawal. Asked to discuss with his and patient stated "we have already decided, I'm leaving, I'm going to meet her downstairs". Advised patient that if he left it would be AMA. Case discussed with Dr. Awad Hospital course: See assessment and plan for hospital course - Time Spent with Patient Total time spent providing and/or coordinating discharge services: - Constitutional Vitals: Temp Pulse Resp BP Pulse Ox 97.4 F L 93 18 147/99 97 08/12/17 10:33 08/12/17 10:33 08/12/17 10:33 08/12/17 10:33 08/12/17 10:33 General appearance: Present: mild distress, A&O X 3 - Head Head exam: Present: atraumatic, normocephalic - Eye Eye exam: Present: PERRL, conjuntiva pink, sclera anicteric Pupils: Present: PERRL - Neck Neck exam general surgery: Present: supple, trachea midline. Absent: lymphadenopathy - Respiratory Respiratory exam: Present: CTAB. Absent: accessory muscle use, rales, rhonchi, wheezes - Cardiovascular Cardiovascular exam: Present: RRR, +S1, +S2. Absent: diastolic murmur, gallop, rubs, systolic murmur - GI/Abdominal GI/Abdominal exam: Present: normal bowel sounds, soft, no peritoneal signs. Absent: distended, tenderness - Extremities Exam Extremities exam: Present: warm, radial pulses palpable and symmetrical. Absent : calf tenderness, cyanotic, pedal edema - Neurological Exam Neurological exam: Present: CN II-XII intact, oriented X3, no focal deficits. Absent: pronater drift, facial droop, speech deficit - Skin Skin exam: Present: dry, intact
== END 2017-08-12 12:05 | disposition left against medical advice (07) ==
LOC: EMEROO 13:47 → 3BNU 13:47
PROVIDERS: ADMIT Nurse Practitioner Family; ATTEND Registered Nurse